=== PATIENT | female | born 1995 | race Hispanic/Latino ===

== ENCOUNTER 2016-04-13 10:01 | Emergency (ER) | payer OTHER ==
[~2016-04-13] VITALS: Ht 175.3 cm; Wt 77.3 kg
[2016-04-13 10:03] VITALS: BP 140/78; PULSE 106; RESP 16; O2SAT 100
--- NOTE | 2016-04-13 10:07 | ED.REPORT ---
HPI-Chest Pain Under 40 Date of Service Apr 13, 2016 ED Provider: The patient is a 21 year old otherwise healthy female who presents to the emergency department complaining of left-sided chest pain that has been ongoing over the last 4 days. Her pain is worse with deep breaths. Her pain is not worse with movement. She has not had similar symptoms in the past. She denies shortness of breath, lower extremity swelling, cough, fever or chills. She denies any recent injury or trauma. She smokes marijuana and drinks alcohol occasionally. Her LNMP was March 28. She is not on control. She denies recent surgeries. No history of pervious blood clots. Nursing Notes Stated Complaint: CHEST TIGHTNESS Chief Complaint: Chest Pain-Non Cardiac Nature Nursing Notes Reviewed: Yes Allergies: Coded Allergies: No Known Allergies (Unverified Allergy, Unknown, 10/10/13) General Time Seen by MD: 10:06 Chief Complaint Chest pain Hx Obtained From: Patient Arrived By: Walk-in Sudden in Onset?: Yes Onset Occurred: 4 days ago Symptom Duration: Since onset Location: : Chest left Quality: Painful Severity: Current: Moderate Severity: Maximum: Moderate Recent Healthcare: No recent doctor visit, No recent hospitalization Similar Sx Previous: No Risk Factors PERC Rule Heart rate 100 or over PERC Result: One or more crit "Yes", PERC rule not satisfied Well's Criteria for PE HR > 100 (1.5) Well's PE Score: 0-2 pts (low risk 3.6%) Past Medical History Past Medical History None Past Surgical History Reports: Tonsillectomy Family History Noncontributory Smoking History Never Smoker Social History Alcohol Use: "Social" Drug Use: THC Other Social History: Local resident Ambulatory Status Independent Review of Systems Constitutional: Denies: Chills, Fever Respiratory: Reports: Pleuritic pain, Denies: Non-productive cough, Shortness of breath Cardiovascular: Reports: Chest pain Complete sys rev & neg: except as marked. Physical Exam Initial Vital Signs Vital Signs (First) Date Time Temp Pulse Resp B/P Pulse Ox O2 Delivery O2 Flow Rate FiO2 04/13/16 10:03 36.6 106 16 140/78 100 Room Air Initial VS: Reviewed Head / Eyes: Atraumatic, Normocephalic, PERRL ENT: Mucous membranes moist, Conjunctiva normal, No scleral icterus Neck: Supple, Non-tender, Full range of motion Abdomen / GI: Soft, Non-tender, No guarding, No rebound, No distention Lymphatic: No lymphadenopathy Extremities: Vascular intact, Neuro intact, No swelling, No tenderness Skin: Warm, Dry, No cyanosis Neurologic: Alert, Oriented, Nonfocal Psychiatric: Mood/affect normal, Behavior normal, Normal thought content General/Constitutional: Awake, Alert, Cooperative Respiratory / Chest: Atraumatic, Breath sounds NL, Breath sounds = bilat, No respiratory distress, No rales, No rhonchi, No wheezing, No chest tenderness Cardiovascular: Regular rhythm, Heart sounds NL, No murmurs, No rubs, Peripheral circulation NL, Pulses = bilaterally, No gross BP differential Heart Rate / Rhythm: Positive: Tachycardia Interpretation & Diagnostics Interpretation & Diagnostics: Urine : positive Lab Results Interpretation Result Diagram: 04/13/16 1100 04/13/16 1100 Test 04/13/16 10:10 04/13/16 11:00 04/13/16 11:01 Hold Urine Received (Received) White Blood Count 5.1th/mm3 (3.8-10.1) Red Blood Count 4.18mil/mm3 (3.90-5.20) Hemoglobin 12.6g/dL (12.0-15.6) Hematocrit 36.2% (35.0-46.0) Mean Corpuscular Volume 86.6fL (81-100) Mean Corpuscular Hemoglobin 30.1pg (27.0-35.0) Mean Corpuscular Hemoglobin Concent 34.8% (32.0-37.0) Red Cell Distribution Width 12.3% (12.3-15.4) Platelet Count 253bil/L (150-400) Neutrophils (%) (Auto) 66.0% (40-74) Lymphocytes (%) (Auto) 27.5% (14-46) Monocytes (%) (Auto) 4.9% (4-12) Eosinophils (%) (Auto) 1.0% (0-5) Basophils (%) (Auto) 0.4% (0-3) D-Dimer < 0.5mg/L (<0.50) Sodium Level 137mEq/L (134-144) Potassium Level 3.5mEq/L (3.5-5.2) Chloride Level 103mEq/L (97-108) Carbon Dioxide Level 19mmol/L (18-29) Blood Urea Nitrogen 9mg/dL (6-20) Creatinine 0.49mg/dL (0.57-1.00) Estimat Glomerular Filtration Rate 231mL/min (>59) Glucose Level 137mg/dL (60-99) Calcium Level 8.6mg/dL (8.5-10.1) Hold Red Top Tube Received (Received) Hold Gonsalez Top Tube Received (Received) ECG Interpretation ECG Interpretation: Sinus tachycardia with a rate of 124 Time: 10:25 Interpreted by: ED physician X-Ray Chest Interpretation Chest Xray Interpretation: IMPRESSION: No acute cardiopulmonary disease process. Dictated by: Rylie Betancourt MD, PhD on 04/13/2016 at 11:24 Interpretation / Wet Read by: Interpret - Radiologist Re-Eval/Medical Decision Med Decision/Clinical Course No Obvious cardiopulmonary pathology however this patient is . Return and follow-up precautions given. Source of Hx: Old records Re-Evaluation/Progress #1: Time of Eval: 10:34 Re-Evaluation/Progress Note: Rechecked the patient. Discussed urine results. She denies vaginal bleeding or pelvic pain. Discussed option for chest x-ray with the patient. She would like to move forward with the x-ray. Re-Evaluation/Progress #2: Time of Eval: 11:32 Re-Evaluation/Progress Note: Discussed results, diagnosis, and plan for discharge. All questions were addressed. Counseled Regarding: Diagnosis, Lab results, Need for follow-up, When/why to return to ED Discharge & Departure Primary Impression: Chest wall pain Additional Impression: Weeks of gestation: less than 8 weeks Qualified Code: Z3A.01 - Less than 8 weeks gestation of Discharge Condition All VS Reviewed: Yes Condition: Stable Patient Instructions: (ED) Additional Instructions: Thank you for entrusting us with your care today. Your chest x-ray, EKG, and labs today are reassuring. There is no evidence of a heart attack, blood clot, or pneumonia. Your pain may be musculoskeletal. Your urine was positive for . You should followup with your regular doctor or OBGYN to further manage this. Please return to the emergency department for any new or concerning symptoms. Referrals: Kamini Villalpando DO (PCP) Scribe Attestation Portions of this note were transcribed by Anastasiya Clark. I, Dr. Salazar personally performed the history, physical exam and medical decision-making; I reviewed and confirmed the accuracy of the information in the transcribed note. Signed by: Ilene Chamberlain, 04/13/2016 and 1140. copies to: Kamini Villalpando Timothy S DO Apr 13, 2016 10:07 Anastasiya Clark Apr 13, 2016 10:14
--- NOTE | 2016-04-13 11:25 | DRSVH ---
PROCEDURE: X-RAY CHEST ONE VIEW, PORTABLE ([id number]) INDICATIONS: chest pain TECHNIQUE: One view of the chest was acquired. COMPARISON: None. FINDINGS: Surgical changes and devices: None. Lungs and pleura: No pleural effusions or pneumothorax. Lungs are clear. Mediastinum: Mediastinal contours appear normal. Heart size is normal. Bones and chest wall: No suspicious bony lesions. Overlying soft tissues appear unremarkable. IMPRESSION: No acute cardiopulmonary disease process. Dictated by: Rylie Betancourt MD, PhD on 04/13/2016 at 11:24 Approved by: Rylie Betancourt MD, PhD on 04/13/2016 at 11:24
[2016-04-13 11:44] LABS: BASOPHILS % (AUTO) 0.4 % (0-3); MONOCYTES % (AUTO) 4.9 % (4-12); Mean Corpuscular Hemoglobin 30.1 pg (27.0-35.0); Mean Corpuscular Volume 86.6 fL (81-100); Platelet Count 253 bil/L (150-400)
[2016-04-13 11:46] VITALS: BP 142/76; PULSE 82; RESP 18; O2SAT 98
== END 2016-04-13 11:56 | disposition home or self-care (01) ==
LOC: SED 10:01
DX: O26.891 Other specified pregnancy related conditions, first trimester (principal); R07.89 Other chest pain; Z3A.01 Less than 8 weeks gestation of pregnancy